=== PATIENT | male | born 1995 | race Caucasian/White ===

== ENCOUNTER → 2018-09-14 09:01 | Outpatient (CLI) | payer OTHER, SELFPAY ==
--- NOTE | 2018-09-14 09:10 | XR_ITS ---
XR foot LT min 3V HISTORY: Pain ITS.REASON: EDEMA ORDERING PHYSICIAN: Jess Nunes PATIENT AGE: 23 years COMPARISON: None FINDINGS: There is lobular soft tissue swelling at the first metatarsophalangeal junction medially as well as soft tissue swelling of the great toe. Bony hypertrophic change involves the lateral aspect of the first interphalangeal joint. The first metatarsal and metatarsophalangeal junction have an unremarkable appearance. There are hypertrophic changes along the dorsal aspect of the talus and navicular. No fracture or dislocation. IMPRESSION: 1. Soft tissue swelling of the great toe diffusely distally and lobular along the first metatarsophalangeal junction 2. Bony spurring along the lateral aspect of the first interphalangeal joint
--- NOTE | 2018-09-14 10:02 | US_ITS ---
US Arterial Ankle Brachial Ind History: Swelling, edema ORDERING PHYSICIAN: Jess Nunes PATIENT AGE: 23 years TECHNIQUE: Segmental pressures obtained of both right and left leg. These are compared to brachial blood pressure to yield index at each level sampled including summary BELLE. The data sheets from the procedure are available in PACS FINDINGS Rest study only performed today No prior studies available for comparison. Blood pressures reported are in millimeters mercury. RIGHT LEG BELLE = 1.0. RIGHT LEG TBI=.9 Brachial BP: 156 Thigh BP: 176 Calf BP: 163 Ankle PT: 157 Ankle DP : 164 Digit =142 LEFT LEG BELLE = 1.0 LEFT LEG TBI= .9 Brachial BPD: 144 Thigh BP: 170 Calf BP: 161 Ankle PT:158 Ankle DP: 158 Digit = 143 Pulses and waveforms: Normal IMPRESSION: The ABIs as reported above are within normal limits. Waveforms and pulses are also unremarkable.
== END ==
PROVIDERS: PCP Nurse Practitioner Family; Visit Provider Nurse Practitioner Family
DX: R60.0 Localized edema (principal)
CPT/HCPCS: 73630; 93922